=== PATIENT | female | born 1965 | race Caucasian/White ===

== ENCOUNTER 2022-02-07 20:07 | Outpatient (CLI) | payer BC ==
[2022-02-07] MEDS ORDERED: Iopamidol 370 76% 100 ML VIAL FS ONE (20:08)
== END 2022-02-07 20:08 | disposition home or self-care (01) ==
LOC: BURRAD 20:07
PROVIDERS: ATTEND Internal Medicine
DX: R91.8 Other nonspecific abnormal finding of lung field (principal); R59.0 Localized enlarged lymph nodes
CPT/HCPCS: 71260; Q9967

== ENCOUNTER 2022-09-20 00:50 | Outpatient (CLI) | payer BC | END 2022-09-20 00:51 | disposition home or self-care (01) | LOC: BURCT 00:50 | PROVIDERS: ATTEND Internal Medicine Critical Care Medicine | DX: R91.8 Other nonspecific abnormal finding of lung field (principal) | CPT/HCPCS: 71250 ==